=== PATIENT | female | born 1980 | race African-American/Black ===

== ENCOUNTER 2023-10-26 19:22 | Emergency (ER) | payer SELFPAY ==
[~2023-10-26] VITALS: Ht 165.1 cm; Wt 59.0 kg
[2023-10-26 19:24] VITALS: O2SAT 100
[2023-10-26 19:50] VITALS: TEMP 98.1
[2023-10-26] MEDS: ACETAMINOPHEN 325MG TABLET PO ONE (19:50)
[2023-10-26] MEDS ORDERED: AMOX1TAB16 MT (20:43)
[2023-10-26 21:46] VITALS: BP 118/63; PULSE 108; RESP 18
== END 2023-10-26 21:50 | disposition home or self-care (01) ==
LOC: ER 19:22
DX: J18.9 Pneumonia, unspecified organism (principal); Z20.822 Contact with and (suspected) exposure to COVID-19
CPT/HCPCS: 71045; 87420; 87426; 87804; 99284

== ENCOUNTER 2024-04-03 22:29 | Inpatient (IN) | payer BC, MEDICAID ==
[~2024-04-03] VITALS: Ht 162.6 cm; Wt 68.0 kg
[~2024-04-03 22:29] MED LIST: BUPR-46 PO; GABA-532 PO; KEPPSOL PO; QUET100T PO; TOPI25TA48 PO; TRAZ-251 PO
[2024-04-03 23:33] LABS: HEMOGLOBIN. 11.9 g/dL (12.0-16.0); MEAN CORPUSCULAR HEMOGLOBIN 30.3 pg (28.0-32.0); MEAN CORPUSCULAR HGB CONC 33.2 g/dL (31.0-37.0); MEAN CORPUSCULAR VOLUME 91.3 fL (81.0-99.0); MEAN PLATELET VOLUME 9.6 fl (7.4-10.4); PLATELET 152 x1000/uL (130-400); RED BLOOD CELL COUNT 3.94 mill/uL (4.2-5.4); RED CELL DISTRIBUTION WIDTH 16.1 % (11.6-14.6); WHITE BLOOD COUNT 4.8 x1000/uL (4.5-11.0)
[2024-04-03 23:34] LABS: CARBON DIOXIDE 24 mEq/L (21-32); CHLORIDE 110 mEq/L (98-107); POTASSIUM 3.6 mEq/L (3.5-5.1); SODIUM 138 mEq/L (136-145)
[2024-04-03 23:35] LABS: DIFFERENTIAL COMMENT 1
[2024-04-03 23:39] LABS: CREATININE 0.8 mg/dL (0.6-1.0)
[2024-04-03 23:40] LABS: GLUCOSE 109 mg/dL (70-105); UREA NITROGEN BLOOD 12 mg/dL (9-23)
[2024-04-03 23:44] LABS: CLARITY URINE CLEAR (CLEAR); COLOR URINE YELLOW (YELLOW); GLUCOSE URINE NEGATIVE (NEGATIVE); KETONES URINE 1+ (NEGATIVE); LEUKOCYTE ESTERASE URINE TRACE (NEGATIVE); NITRITE URINE NEGATIVE (NEGATIVE); OCCULT BLOOD URINE 3+ (NEGATIVE); PROTEIN URINE 1+ (NEGATIVE); SPECIFIC GRAVITY URINE 1.046 (1.005-1.030)
[2024-04-03 23:49] LABS: PROTHROMBIN TIME 11.1 sec (9.6-11.0)
[2024-04-03 23:52] LABS: *AMPHETAMINES SCREEN URINE NEGATIVE (NEGATIVE); *BENZODIAZEPINES SCREEN URINE PRESUMPTIVE POSITIVE (NEGATIVE)
[2024-04-03 23:53] LABS: *BARBITURATES SCREEN URINE NEGATIVE (NEGATIVE); *COCAINE SCREEN URINE PRESUMPTIVE POSITIVE (NEGATIVE); CANNABINOID URINE SCREEN PRESUMPTIVE POSITIVE (NEGATIVE); ECSTASY MDMA SCREEN URINE NEGATIVE (NEGATIVE); METHADONE URINE SCREEN NEGATIVE (NEGATIVE); OPIATES URINE SCREEN NEGATIVE (NEGATIVE); PHENCYCLIDINE URINE SCREEN NEGATIVE (NEGATIVE)
[2024-04-04 00:01] LABS: HCG SCREEN NEGATIVE
[2024-04-04 00:03] LABS: ETHANOL BLOOD < 10 mg/dL (<10)
[2024-04-04] MEDS: LEVETIRACETAM 1000MG PREMIX 100 ML IV ONE (00:22)
[2024-04-04] MEDS ORDERED: ASPIRIN 325MG EC TABLET PO ONE (00:30)
[2024-04-04 01:06] LABS: SQUAMOUS EPITHELIAL CELL URINE FEW /lpf (RARE/1+)
[2024-04-04 01:07] LABS: BACTERIA URINE TRACE
[2024-04-04] MEDS: CLOPIDOGREL 75MG TABLET PO ONE (01:20)
[2024-04-04] MEDS: ASPIRIN 81MG TABLET PO NR (01:20)
[2024-04-04 01:23] LABS: PLATELET ESTIMATE NORMAL
[2024-04-04 05:00] VITALS: BP 135/97; PULSE 79; RESP 18; TEMP 36.89184; O2SAT 94
[2024-04-04] MEDS: IOHEXOL-350 100 ML BOTTLE ONE (08:12)
[2024-04-04] MEDS ORDERED: ACETAMINOPHEN 325MG TABLET PO PRN ×2 (11:15)
[2024-04-04] MEDS ORDERED: ONDANSETRON HCL 4MG/2ML INJ IV PRN (11:15)
[2024-04-04] MEDS ORDERED: DOCUSATE SODIUM 100MG CAPSULE PO PRN (11:15)
[2024-04-04] MEDS ORDERED: LORAZEPAM 2MG/ML INJ IV PRN (11:15)
[2024-04-04] MEDS ORDERED: IPRATROPIUM/ALBUTEROL 0.5-3(2.5)MG/3ML NEB HHN PRN (11:15)
[2024-04-04] MEDS ORDERED: CLONIDINE 0.1MG TABLET PO PRN (11:15)
[2024-04-04] MEDS: PANTOPRAZOLE SODIUM 40 MG/VIAL IV SCH (11:30)
[2024-04-04] MEDS: CEFTRIAXONE 1GM/50ML 50 ML IV SCH (12:00)
[2024-04-04] MEDS: ENOXAPARIN 40MG/0.4ML SYR SUBCUT SCH (12:00)
[2024-04-04] MEDS: LEVETIRACETAM 500MG PREMIX 100 ML IV SCH (13:00)
[2024-04-04 14:48] LABS: BASOPHILS % 0.6 % (0.0-2.0); EOSINOPHILS % 7.1 % (0.0-5.0); HEMATOCRIT. 36.1 % (36.0-48.0); HEMOGLOBIN. 11.9 g/dL (12.0-16.0); LYMPHOCYTES % 34.7 % (20.0-50.0); MEAN CORPUSCULAR HEMOGLOBIN 30.4 pg (28.0-32.0); MEAN CORPUSCULAR HGB CONC 32.9 g/dL (31.0-37.0); MEAN CORPUSCULAR VOLUME 92.5 fL (81.0-99.0); MEAN PLATELET VOLUME 9.7 fl (7.4-10.4); MONOCYTES % 11.3 % (2.0-8.0); NEUTROPHILS % 46.3 % (40.0-76.0); PLATELET 141 x1000/uL (130-400); RED BLOOD CELL COUNT 3.91 mill/uL (4.2-5.4); RED CELL DISTRIBUTION WIDTH 16.3 % (11.6-14.6); WHITE BLOOD COUNT 4.1 x1000/uL (4.5-11.0)
[2024-04-04 15:17] LABS: CALCIUM 8.9 mg/dL (8.7-10.4); CARBON DIOXIDE 23 mEq/L (21-32); CHLORIDE 109 mEq/L (98-107); POTASSIUM 3.8 mEq/L (3.5-5.1); SODIUM 135 mEq/L (136-145)
[2024-04-04 15:21] LABS: CREATININE 0.8 mg/dL (0.6-1.0); GLUCOSE 109 mg/dL (70-105)
[2024-04-04 15:22] LABS: ALANINE AMINOTRANSFERASE 14 IU/L (10-49); LDL CHOLESTEROL 94 mg/dL (5-100); T4 FREE 0.94 ng/dL (0.89-1.76); THYROID STIMULATING HORMONE 2.02 uIU/mL (0.55-4.78)
[2024-04-04 15:23] LABS: ALBUMIN 3.6 g/dL (3.2-4.8); ASPARTATE AMINOTRANSFERASE 27 IU/L (<34); CHOLESTEROL 141 mg/dL (<200); D-DIMER 0.72 mg/L FEU (<0.50); HDL CHOLESTEROL 42 mg/dL (>65); PROTHROMBIN TIME 10.9 sec (9.6-11.0); TRIGLYCERIDE 49 mg/dL (0-150); UREA NITROGEN BLOOD 10 mg/dL (9-23)
[2024-04-04 15:24] LABS: BILIRUBIN TOTAL 0.3 mg/dL (0.1-1.0); PHOSPHORUS 2.8 mg/dL (2.5-4.9)
[2024-04-04 15:25] LABS: PROTEIN TOTAL 8.1 g/dL (6.0-8.3)
[2024-04-04 15:42] LABS: BILIRUBIN DIRECT < 0.1 mg/dL (<=3.0); ETHANOL BLOOD < 10 mg/dL (<10)
[2024-04-04 18:58] VITALS: BP 111/84; PULSE 70; RESP 20; TEMP 36.418
[2024-04-04 19:59] VITALS: BP 138/84; PULSE 64; RESP 18; TEMP 36.9474; O2SAT 99
[2024-04-04] MEDS: ATORVASTATIN CALCIUM 40MG TABLET PO SCH (21:18)
[2024-04-05] VITALS (7 sets, daily range): BP systolic 103–145; BP diastolic 61–93; PULSE 67–86; RESP 18–20; TEMP 36.22512–37.2252; O2SAT 95–100
[2024-04-05 00:20] LABS: CREATINE KINASE MB FRACTION 2.4 ng/mL (0.5-3.6)
[2024-04-05 00:21] LABS: CREATINE KINASE 232 IU/L (34-145)
[2024-04-05 00:30] LABS: TROPONIN I HIGH SENSITIVITY < 4 ng/L (3.0-34)
[2024-04-05] MEDS: CLOPIDOGREL 75MG TABLET PO SCH (09:05)
[2024-04-05] MEDS: ASPIRIN 81MG TABLET PO SCH (09:06)
[2024-04-05 16:17] LABS: CHLORIDE 109 mEq/L (98-107); POTASSIUM 3.9 mEq/L (3.5-5.1); SODIUM 138 mEq/L (136-145)
[2024-04-05 16:18] LABS: BASOPHILS % 0.8 % (0.0-2.0); CARBON DIOXIDE 27 mEq/L (21-32); DIFFERENTIAL COMMENT 0; EOSINOPHILS % 7.6 % (0.0-5.0); HEMATOCRIT. 36.7 % (36.0-48.0); HEMOGLOBIN. 11.7 g/dL (12.0-16.0); LYMPHOCYTES % 42.4 % (20.0-50.0); MEAN CORPUSCULAR HEMOGLOBIN 29.4 pg (28.0-32.0); MEAN CORPUSCULAR VOLUME 91.9 fL (81.0-99.0); MEAN PLATELET VOLUME 9.8 fl (7.4-10.4); MONOCYTES % 14.6 % (2.0-8.0); NEUTROPHILS % 34.6 % (40.0-76.0); PLATELET 160 x1000/uL (130-400); RED CELL DISTRIBUTION WIDTH 15.9 % (11.6-14.6); WHITE BLOOD COUNT 4.2 x1000/uL (4.5-11.0)
[2024-04-05 16:23] LABS: CREATININE 0.8 mg/dL (0.6-1.0); GLUCOSE 90 mg/dL (70-105)
[2024-04-05 16:24] LABS: UREA NITROGEN BLOOD 9 mg/dL (9-23)
[2024-04-06 04:00] VITALS: BP 93/51; PULSE 62; RESP 18; TEMP 36.55848; O2SAT 100
[2024-04-06 07:56] VITALS: BP 98/61; PULSE 71; RESP 19; TEMP 36.72516; O2SAT 98
[2024-04-06 11:47] VITALS: BP 129/69; PULSE 76; RESP 20; TEMP 36.9474; O2SAT 100
[2024-04-06 15:29] VITALS: BP 102/67; PULSE 84; RESP 20; TEMP 36.9474; O2SAT 97
[2024-04-06 20:00] VITALS: BP 121/75; PULSE 75; RESP 18; TEMP 36.89184; O2SAT 98
[2024-04-07] VITALS: BP 116/63; PULSE 71; RESP 18; TEMP 36.89184; O2SAT 97
[2024-04-07 04:00] VITALS: BP 99/55; PULSE 67; RESP 18; TEMP 36.55848; O2SAT 98
[2024-04-07 08:00] VITALS: BP 117/60; PULSE 89; RESP 20; TEMP 36.16956; O2SAT 100
[2024-04-07 12:00] VITALS: BP_SYST 112; BP_SYST 123; BP_DIAS 70; BP_DIAS 71; PULSE 65; PULSE 83; RESP 18; TEMP 36.61404; O2SAT 100; O2SAT 99
[2024-04-07 16:00] VITALS: BP 123/71; PULSE 65; RESP 18; TEMP 36.28068; O2SAT 100
[2024-04-08 07:51] VITALS: BP 108/74; PULSE 64; RESP 16; TEMP 36.16956; O2SAT 99
[2024-04-08 16:00] VITALS: BP 113/67; PULSE 60; RESP 16; TEMP 36.28068; O2SAT 98
[2024-04-08 20:00] VITALS: BP 135/90; PULSE 85; RESP 18; TEMP 36.50292; O2SAT 98
[2024-04-09] VITALS: BP 128/87; PULSE 78; RESP 18; TEMP 36.55848; O2SAT 97
[2024-04-09 04:00] VITALS: BP 117/55; PULSE 85; RESP 20; TEMP 36.55848; O2SAT 98
[2024-04-09 08:00] VITALS: BP 130/56; PULSE 67; RESP 18; TEMP 36.78072; O2SAT 96
[2024-04-09] MEDS: FAMOTIDINE 20MG/2ML VIAL IV SCH (08:29)
[2024-04-09] MEDS ORDERED: EZ-HD SUSPENSION(BARIUM SULFATE 340GM) PO ONE ×2 (10:51→11:23)
[2024-04-09] MEDS ORDERED: SIMETHICONE/SOD BICARB/CIT AC 1 EACH GRAN.EF.PK ONE (10:51)
[2024-04-09] MEDS ORDERED: BARIUM SULFATE 176 GM SUSP.RECON ONE (10:53)
[2024-04-09 12:00] VITALS: BP 119/66; PULSE 77; RESP 18; TEMP 36.61404; O2SAT 99
[2024-04-09 16:00] VITALS: BP 118/55; PULSE 79; RESP 18; TEMP 36.89184; O2SAT 99
[2024-04-09 20:00] VITALS: BP 117/56; PULSE 72; RESP 18; TEMP 36.3918; O2SAT 96
[2024-04-09] MEDS: FAMOTIDINE 20MG TABLET PO SCH (22:02)
[2024-04-09] MEDS: LEVETIRACETAM 500MG TABLET PO SCH (22:02)
[2024-04-10] VITALS: BP 120/58; PULSE 75; RESP 20; TEMP 36.72516; O2SAT 97
[2024-04-10 04:00] VITALS: BP 104/57; PULSE 65; RESP 18; TEMP 36.61404; O2SAT 97
[2024-04-10 08:00] VITALS: BP 100/54; PULSE 61; RESP 18; TEMP 36.72516; O2SAT 98
[2024-04-10] MEDS ORDERED: LIP40 PO (09:36)
[2024-04-10] MEDS ORDERED: KEPP500 PO (09:36)
[2024-04-10] MEDS ORDERED: ASPI-1160 PO (09:36)
[2024-04-10 11:20] VITALS: BP 110/59; PULSE 61; TEMP 98.1; O2SAT 98
== END 2024-04-10 12:05 | disposition home or self-care (01) | DRG 101 ==
LOC: ER 22:29 → 5WST 04-04 01:19 → 7WST 04-04 18:18
PROVIDERS: ADMIT Internal Medicine; ATTEND Internal Medicine
PROC: 4A10X4Z Monitoring of Central Nervous Electrical Activity, External Approach (ICD-10-PCS; principal; 2024-04-06)
DX: G40.909 Epilepsy, unspecified, not intractable, without status epilepticus (principal); N39.0 Urinary tract infection, site not specified; Z59.00 Homelessness unspecified; D64.9 Anemia, unspecified; I65.22 Occlusion and stenosis of left carotid artery; E03.9 Hypothyroidism, unspecified; F14.10 Cocaine abuse, uncomplicated; R13.12 Dysphagia, oropharyngeal phase; I10 Essential (primary) hypertension; F17.210 Nicotine dependence, cigarettes, uncomplicated; Z86.73 Personal history of transient ischemic attack (TIA), and cerebral infarction without residual deficits; Z90.49 Acquired absence of other specified parts of digestive tract
CPT/HCPCS: 36415; 70496; 70498; 70551; 71045; 74220; 74230; 80048; 80061; 80076; 80305; 80320; 81003; 82550; 82553; 83605; 83735; 84100; 84145; 84439; 84443; 84480; 84484; 84703; 85025; 85379; 92523; 92610; 92611; 93005; 93306; 93880; 95816; 97162; 97166; 97530; 99291; J0696; J1650; J1953; J2470; J7517; Q9967; G0480